=== PATIENT | female | born 1980 | race Caucasian/White ===

== ENCOUNTER 2017-05-14 17:32 | Emergency (ER) | payer BC, OTHER ==
[~2017-05-14] VITALS: Ht 170.2 cm; Wt 102.3 kg
[2017-05-14 18:01] VITALS: BP 161/94; PULSE 103; TEMP 36.3; O2SAT 99; Ht 170.2 cm; Wt 102.3 kg
[2017-05-14] MEDS ORDERED: LEVO1IUD2 INT UTER (18:43)
--- NOTE | 2017-05-14 19:04 | DIAGNOSTIC IMAGING REPORT ---
LEFT KNEE 3 VIEWS HISTORY: Left knee injury while skiing COMPARISON: None. FINDINGS: There is no fracture or dislocation. Soft tissues are unremarkable. No radiopaque foreign bodies. Small knee effusion. IMPRESSION: No fractures. Small knee effusion. Electronically signed by: Jb Osullivan M.D. 05/14/2017 7:03 PM Dictated Date/Time: 05/14/2017 7:02 PM
--- NOTE | 2017-05-15 00:38 | EMERGENCY ROOM VISIT NOTE ---
ED Visit Note First contact with patient: 18:05 CHIEF COMPLAINT: knee pain HISTORY OF PRESENT ILLNESS: This 36-year-old female patient presents to the emergency department after sustaining an injury to the left knee while skiing this afternoon. The patient states that she lost control, fell awkwardly, and now has diffuse left knee pain. The patient denies any other injuries besides their knee. The patient is without significant swelling or bruising. There is pain diffusely. They rate the pain as dull and 7/10. The patient states they are not comfortably able to walk on it. No numbness or tingling. No previous injuries to this knee. No ankle, foot or hip pain. REVIEW OF SYSTEMS: A 6 system review of systems was completed with positives and pertinent negatives listed in the HPI. ALLERGIES: No known allergies MEDICATIONS: No chronic medications PMH: Otherwise healthy SOCIAL HISTORY: Lives [place] PHYSICAL EXAM: Vital Signs: Reviewed Nurse's notes, vital signs stable. GENERAL : White female, no acute distress, but appears in pain, well-developed, well- nourished. MENTAL STATUS: Alert, oriented to person place and time, and cooperative. MUSCULOSKELETAL: The left knee is minimally swollen. There is no ecchymosis. There is no significant joint effusion present. The patient is tender diffusely. There is medial joint line tenderness. The patella does not subluxate. Range of motion is limited. Strength of the quads and hamstrings is 5 /5. Kalyn's is negative. Sarah's and Anterior Drawer tests are negative. There is no laxity with varus and valgus stressing. The foot and toes are warm and well-perfused. Dorsalis pedis pulse 2+. Sensation to pain and light touch is intact. Capillary refill less than 2 seconds. LEFT KNEE 3 VIEWS HISTORY: Left knee injury while skiing COMPARISON: None. FINDINGS: There is no fracture or dislocation. Soft tissues are unremarkable. No radiopaque foreign bodies. Small knee effusion. IMPRESSION: No fractures. Small knee effusion. EMERGENCY DEPARTMENT COURSE: Physical exam and history was performed. Nursing notes and EMR were reviewed. The patient appears to have injured her left knee while skiing. X-ray was obtained and does not show acute fracture or dislocation per my and radiology's interpretation. The patient will be placed in a knee immobilizer and given crutches. She will need to follow with orthopedics out of concern for ligamentous injury. She was invited back to the ER with any new, worsening, or concerning symptoms. Current/Historical Medications Scheduled Levonorgestrel (Iud) (Mirena), 20 MCG INT UTER UD Allergies Coded Allergies: No Known Allergies (Unverified , 05/14/17) Vital Signs Date Time Temp Pulse Resp B/P (MAP) Pulse Ox O2 Delivery O2 Flow Rate FiO2 05/14/17 18:01 36.3 103 18 161/94 99 Room Air Departure Information Impression Primary Impression: Injury of left knee Dispostion Home / Self-Care Condition FAIR Forms HOME CARE DOCUMENTATION FORM, IMPORTANT VISIT INFORMATION Patient Instructions My [facility], ED RICE Additional Instructions You were seen and evaluated today on an emergency basis only. This is not a substitute for, or an effort to provide, complete comprehensive medical care. It is not possible to recognize and treat all injuries or illnesses in a single emergency department visit. For this reason it is recommended that you followup with Orthopedics, Dr. Rice's office, for ongoing care and evaluation. Wear your knee immobilizer and use your crutches until cleared by orthopedics For baseline pain relief you may alternate ibuprofen and acetaminophen every 4 hours for pain control. Take 600 mg ibuprofen (Advil) and then 4 hours later take 1000 mg acetaminophen (Tylenol). Do not take more than 3000 mg acetaminophen in a single day. You are welcome to return to the emergency department anytime with new, worsening, or concerning symptoms.
== END 2017-05-14 19:42 | disposition home or self-care (01) ==
LOC: C.EDB 17:33 → C.EDD 19:42
DX: S89.92XA Unspecified injury of left lower leg, initial encounter (principal); V00.321A Fall from snow-skis, initial encounter; Y93.23 Activity, snow (alpine) (downhill) skiing, snowboarding, sledding, tobogganing and snow tubing